=== PATIENT | male | born 1965 ===

== ENCOUNTER 2021-01-27 01:48 | Emergency (ER) | payer OTHER, BC ==
[2021-01-27] MEDS ORDERED: Sodium Chloride 0.9% 10 ML Syringe FLUSH PRN (02:10)
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
[2021-01-27] MEDS ORDERED: Sodium Chloride 0.9% 1,000 ML IV ONE (02:44)
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
== END 2021-01-27 04:52 | disposition home or self-care (01) ==
LOC: LB.ED 01:48
DX: F10.129 Alcohol abuse with intoxication, unspecified (principal); Y90.8 Blood alcohol level of 240 mg/100 ml or more; V49.40XA Driver injured in collision with unspecified motor vehicles in traffic accident, initial encounter; Y92.410 Unspecified street and highway as the place of occurrence of the external cause
CPT/HCPCS: 36415; 70450; 72125; 72128; 80048; 80307; 85027; 99284-25; A0425; A0429; J7030